=== PATIENT | female | born 1990 | race Caucasian/White ===

== ENCOUNTER → 2021-03-01 16:42 | Outpatient (CLI) | payer OTHER, SELFPAY ==
[2021-03-01 14:32] VITALS: BMI 29.9
[2021-03-06 15:24] LABS: HPV APTIMA, High Risk Negative (Negative)
== END ==
PROVIDERS: Referring Provider Obstetrics & Gynecology; Visit Provider Obstetrics & Gynecology
DX: Z12.4 Encounter for screening for malignant neoplasm of cervix (principal)
CPT/HCPCS: 87624; 88175; G0145

== ENCOUNTER → 2021-03-07 07:33 | Outpatient (CLI) | payer OTHER, SELFPAY ==
[2021-03-01 14:32] VITALS: BMI 29.9
--- NOTE | 2021-03-07 07:59 | US_ITS ---
STUDY: ULTRASOUND OF THE FEMALE PELVIS - COMPLETE REASON FOR EXAM: Female, 30 years old. PCOS LMP: 02/16/2021. TECHNIQUE: Transabdominal and Transvaginal TECHNICAL QUALITY: Adequate. COMPARISON: None. FINDINGS: The uterus is anteverted and is in a midline position. The uterus measures 6.9 cm x 4.3 cm x 3.5 cm. There is a Nabothian cyst of the cervix. The endometrium measures 5.1 mm in thickness, and is hyperechoic. There is no demonstrated endometrial mass. There is no demonstrated myometrial mass. I.U.D. - The patient does not have an I.U.D. The right ovary is visualized. The right ovary measures 2.7 cm x 4 cm x 2.1 cm. Multiple follicles are seen in the periphery of the ovaries. There is no visualized right adnexal mass or complex lesion. There is normal arterial and normal venous vascularity. The left ovary is visualized. The left ovary measures 3.7 cm x 2.6 x 2.2 cm. Multiple follicles are seen in the peripheral aspect of the ovaries. There is no visualized left adnexal mass or complex lesion. There is normal arterial and normal venous vascularity. There is a trace amount of fluid in the cul-de-sac. The pre void volume of the bladder was 430 ml. US/Transvaginal Non- IMPRESSION: Normal female pelvis. Multiple follicles are seen in the peripheral aspect of the ovaries. Electronically Signed: Jaylon Morrell MD at 14:59 EDT , Service support ,
--- NOTE | 2021-03-07 07:59 | US_ITS ---
STUDY: ULTRASOUND OF THE FEMALE PELVIS - COMPLETE REASON FOR EXAM: Female, 30 years old. PCOS LMP: 02/16/2021. TECHNIQUE: Transabdominal and Transvaginal TECHNICAL QUALITY: Adequate. COMPARISON: None. FINDINGS: The uterus is anteverted and is in a midline position. The uterus measures 6.9 cm x 4.3 cm x 3.5 cm. There is a Nabothian cyst of the cervix. The endometrium measures 5.1 mm in thickness, and is hyperechoic. There is no demonstrated endometrial mass. There is no demonstrated myometrial mass. I.U.D. - The patient does not have an I.U.D. The right ovary is visualized. The right ovary measures 2.7 cm x 4 cm x 2.1 cm. Multiple follicles are seen in the periphery of the ovaries. There is no visualized right adnexal mass or complex lesion. There is normal arterial and normal venous vascularity. The left ovary is visualized. The left ovary measures 3.7 cm x 2.6 x 2.2 cm. Multiple follicles are seen in the peripheral aspect of the ovaries. There is no visualized left adnexal mass or complex lesion. There is normal arterial and normal venous vascularity. There is a trace amount of fluid in the cul-de-sac. The pre void volume of the bladder was 430 ml. US/Pelvic (Non ) IMPRESSION: Normal female pelvis. Multiple follicles are seen in the peripheral aspect of the ovaries. Electronically Signed: Jaylon Morrell MD at 14:59 EDT , Service support ,
[2021-03-07 08:34] LABS: Hemoglobin A1c 5.5 % (3.8-5.6)
[2021-03-07 08:46] LABS: Cholesterol 196 mg/dL (200); Follicle Stimulating Hormone 6.1 mIU/mL; High Density Lipoprotein 68 mg/dL; Thyroid Stim Hormone (TSH) 4.65 uIU/mL (0.358-3.74); Triglycerides 100 mg/dL; Very Low Density Lipoprotein 20 mg/dL (5-40)
[2021-03-12 03:06] LABS: DHEA Sulfate 63.8 ug/dL (84.8-378.0)
== END ==
PROVIDERS: PCP Nurse Practitioner; Referring Provider Obstetrics & Gynecology; Visit Provider Obstetrics & Gynecology
DX: E28.2 Polycystic ovarian syndrome (principal)
CPT/HCPCS: 36415; 76830; 76856; 80061; 82627; 83001; 83036; 84402; 84443; 82626

== ENCOUNTER → 2021-05-01 06:46 | Outpatient (CLI) | payer OTHER, SELFPAY ==
[2021-03-01 14:32] VITALS: BMI 29.9
[2021-04-02 15:25] VITALS: BMI 32.5
[2021-05-01 08:20] LABS: T4 Free Direct 1.13 ng/dL (0.76-1.46); Thyroid Stim Hormone (TSH) 0.78 uIU/mL (0.358-3.74)
[2021-05-01 08:37] LABS: Progesterone Level 16.21 ng/mL (See Comment)
== END ==
LOC: PAVLAB 03-01 15:27 → LAB 06:50
PROVIDERS: Internal Medicine Endocrinology, Diabetes & Metabolism; PCP Nurse Practitioner; Referring Provider Obstetrics & Gynecology; Visit Provider Obstetrics & Gynecology
DX: E28.2 Polycystic ovarian syndrome (principal); E03.9 Hypothyroidism, unspecified
CPT/HCPCS: 36415; 84144; 84439; 84443

== ENCOUNTER → 2021-05-11 07:40 | Outpatient (CLI) | payer OTHER, SELFPAY ==
[2021-04-02 15:25] VITALS: BMI 32.5
[2021-05-11 08:31] LABS: hCG Titer Quant., Serum 118 mIU/mL (1-3)
== END ==
PROVIDERS: PCP Nurse Practitioner; Referring Provider Obstetrics & Gynecology; Visit Provider Obstetrics & Gynecology
DX: N91.2 Amenorrhea, unspecified (principal)
CPT/HCPCS: 36415; 84702

== ENCOUNTER → 2021-05-14 07:29 | Outpatient (CLI) | payer OTHER, SELFPAY ==
[2021-04-02 15:25] VITALS: BMI 32.5
[2021-05-14 08:01] LABS: hCG Titer Quant., Serum 370 mIU/mL (1-3)
== END ==
PROVIDERS: PCP Nurse Practitioner; Referring Provider Obstetrics & Gynecology; Visit Provider Obstetrics & Gynecology
DX: N91.2 Amenorrhea, unspecified (principal)
CPT/HCPCS: 36415; 84702

== ENCOUNTER → 2021-06-14 16:14 | Outpatient (CLI) | payer OTHER, SELFPAY ==
[2021-06-14 17:36] LABS: Amphetamine Urine VISTA NEGATIVE (<1000 ng/mL); Barbiturate Urine VISTA NEGATIVE (< 200 ng/mL); Benzodiazepine Urine VISTA NEGATIVE (< 200 ng/mL); Cocaine Urine VISTA NEGATIVE (< 300 ng/mL); Ecstacy Urine VISTA NEGATIVE (< 500 ng/mL); Methadone Urine VISTA NEGATIVE (< 300 ng/mL); PCP Urine VISTA NEGATIVE (< 25 ng/mL); THC Urine VISTA NEGATIVE (< 50 ng/mL); Vista UDS pH Range 7
[2021-06-18 05:07] LABS: Chlamydia By Nucleic Acid AMP Negative (Negative)
[2021-06-19 17:06] LABS: Gonococcus By Nucleic Acid AMP Negative (Negative)
== END ==
PROVIDERS: PCP Nurse Practitioner; Visit Provider Obstetrics & Gynecology
DX: Z34.90 Encounter for supervision of normal pregnancy, unspecified, unspecified trimester (principal)
CPT/HCPCS: 80307; 87086; 87088; 87491; 87591

== ENCOUNTER → 2021-07-11 09:02 | Outpatient (CLI) | payer OTHER, SELFPAY ==
[2021-04-02 15:25] VITALS: BMI 32.5
[2021-07-11 09:36] LABS: Absolute Lymphocyte Count 1.79 X10^3/uL (0.83-4.51); Absolute Neutrophil Count 5.8 X10^3/uL (2.0-7.7); Basophil# 0.02 X10^3/uL; Basophil% 0.2 % (0-1); Eosinophil# 0.16 X10^3/uL; Eosinophils% 1.9 % (0-5); Hematocrit 34.9 % (37-47); Hemoglobin 11.8 g/dL (12.0-15.0); Lymphocyte # 1.79 X10^3/ul (0.83-4.51); Lymphocyte % 21.8 % (19-41); Mean Corp Hgb Conc 33.8 g/dL (32-36); Mean Corpuscular Hgb 30.7 pg (27.0-32.0); Mean Corpuscular Volume 90.9 fL (81-99); Mean Platelet Vol. 9.3 fl (6.2-12.0); Monocyte# 0.47 X10^3/uL; Monocyte% 5.7 % (0-10); NRBC Flagged by Analyzer 0 % (0-5); Neutrophil # 5.76 X10^3/uL (2.7-7.7); Neutrophil % 70.2 % (47-70); Platelet Count 331 K/mm3 (150-450); RBC Distribution Width CV 15.5 % (11.6-14.6); RBC Distribution Width SD 51.3 fl (35.1-43.9); Red Blood Count 3.84 M/mm3 (4.2-5.4); White Blood Count 8.2 K/mm3 (4.4-11.0)
[2021-07-11 10:01] LABS: Hemoglobin A1c 5.5 % (3.8-5.6)
[2021-07-11 10:28] LABS: T4 Free Direct 1.26 ng/dL (0.76-1.46); Thyroid Stim Hormone (TSH) 0.96 uIU/mL (0.358-3.74)
[2021-07-11 10:57] LABS: HIV - WCH Non-Reactive (Nonreactive); Hepatitis B Surface Antigen Non-Reactive (Nonreactive); Hepatitis C Antibody Non-Reactive (Nonreactive); Rubella IgG Reactive (Nonreactive); Syphilis Antibodies Non-reactive
== END ==
PROVIDERS: Nurse Practitioner Family; Obstetrics & Gynecology; PCP Nurse Practitioner; Referring Provider Internal Medicine Endocrinology, Diabetes & Metabolism; Visit Provider Internal Medicine Endocrinology, Diabetes & Metabolism
DX: Z34.90 Encounter for supervision of normal pregnancy, unspecified, unspecified trimester (principal); E03.9 Hypothyroidism, unspecified; E88.81 Metabolic syndrome and other insulin resistance
CPT/HCPCS: 36415; 83036; 84439; 84443; 85025; 86703; 86762; 86780; 86803; 86850; 86900; 86901; 87340

== ENCOUNTER → 2021-08-07 09:47 | Outpatient (CLI) | payer OTHER, SELFPAY ==
[2021-08-07 10:12] LABS: Absolute Lymphocyte Count 1.26 X10^3/uL (0.83-4.51); Absolute Neutrophil Count 4.5 X10^3/uL (2.0-7.7); Basophil# 0.01 X10^3/uL; Basophil% 0.2 % (0-1); Eosinophil# 0.03 X10^3/uL; Eosinophils% 0.5 % (0-5); Hematocrit 35.6 % (37-47); Hemoglobin 11.7 g/dL (12.0-15.0); Lymphocyte # 1.26 X10^3/ul (0.83-4.51); Lymphocyte % 20.6 % (19-41); Mean Corp Hgb Conc 32.9 g/dL (32-36); Mean Corpuscular Hgb 29.8 pg (27.0-32.0); Mean Corpuscular Volume 90.6 fL (81-99); Mean Platelet Vol. 9.3 fl (6.2-12.0); Monocyte# 0.31 X10^3/uL; Monocyte% 5.1 % (0-10); NRBC Flagged by Analyzer 0 % (0-5); Neutrophil # 4.46 X10^3/uL (2.7-7.7); Neutrophil % 72.8 % (47-70); Platelet Count 217 K/mm3 (150-450); RBC Distribution Width CV 15.2 % (11.6-14.6); RBC Distribution Width SD 51.1 fl (35.1-43.9); Red Blood Count 3.93 M/mm3 (4.2-5.4); White Blood Count 6.1 K/mm3 (4.4-11.0)
[2021-08-07 10:24] LABS: Glucose Challenge Gest 1H 50g 122 mg/dL (70-140)
== END ==
PROVIDERS: PCP Nurse Practitioner; Referring Provider Obstetrics & Gynecology; Visit Provider Obstetrics & Gynecology
DX: Z13.1 Encounter for screening for diabetes mellitus (principal)
CPT/HCPCS: 36415; 82950; 85025

== ENCOUNTER → 2021-09-05 08:32 | Outpatient (CLI) | payer OTHER, SELFPAY ==
[2021-09-05 09:20] LABS: T4 Free Direct 1.02 ng/dL (0.76-1.46); Thyroid Stim Hormone (TSH) 1.08 uIU/mL (0.358-3.74)
== END ==
PROVIDERS: PCP Nurse Practitioner; Referring Provider Internal Medicine Endocrinology, Diabetes & Metabolism; Visit Provider Internal Medicine Endocrinology, Diabetes & Metabolism
DX: E03.9 Hypothyroidism, unspecified (principal)
CPT/HCPCS: 36415; 84439; 84443

== ENCOUNTER → 2021-10-25 08:59 | Outpatient (CLI) | payer OTHER, SELFPAY ==
[2021-10-25 09:42] LABS: Absolute Lymphocyte Count 1.89 X10^3/uL (0.83-4.51); Absolute Neutrophil Count 7.5 X10^3/uL (2.0-7.7); Basophil# 0.03 X10^3/uL; Basophil% 0.3 % (0-1); Eosinophil# 0.54 X10^3/uL; Eosinophils% 5.2 % (0-5); Hematocrit 34.6 % (37-47); Hemoglobin 11.5 g/dL (12.0-15.0); Lymphocyte # 1.89 X10^3/ul (0.83-4.51); Lymphocyte % 18.1 % (19-41); Mean Corp Hgb Conc 33.2 g/dL (32-36); Mean Corpuscular Hgb 30.8 pg (27.0-32.0); Mean Corpuscular Volume 92.8 fL (81-99); Mean Platelet Vol. 9.4 fl (6.2-12.0); Monocyte# 0.42 X10^3/uL; NRBC Flagged by Analyzer 0 % (0-5); Neutrophil # 7.45 X10^3/uL (2.7-7.7); Neutrophil % 71.1 % (47-70); Platelet Count 293 K/mm3 (150-450); RBC Distribution Width CV 15.3 % (11.6-14.6); Red Blood Count 3.73 M/mm3 (4.2-5.4); White Blood Count 10.5 K/mm3 (4.4-11.0)
[2021-10-25 10:07] LABS: Glucose Challenge Gest 1H 50g 165 mg/dL (70-140); T4 Free Direct 0.87 ng/dL (0.76-1.46); Thyroid Stim Hormone (TSH) 1.07 uIU/mL (0.358-3.74)
== END ==
PROVIDERS: PCP Nurse Practitioner; Referring Provider Obstetrics & Gynecology; Visit Provider Obstetrics & Gynecology
DX: O09.90 Supervision of high risk pregnancy, unspecified, unspecified trimester (principal); O98.512 Other viral diseases complicating pregnancy, second trimester; U07.1 COVID-19; O26.892 Other specified pregnancy related conditions, second trimester; N97.0 Female infertility associated with anovulation; E03.9 Hypothyroidism, unspecified; E88.81 Metabolic syndrome and other insulin resistance; Z3A.25 25 weeks gestation of pregnancy
CPT/HCPCS: 36415; 82950; 84439; 84443; 85025

== ENCOUNTER 2021-11-01 06:51 | Outpatient (CLI) | payer OTHER, SELFPAY ==
[2021-11-01 08:06] LABS: Glucose GTT-Gestation. Fasting 90 mg/dL (<105)
[2021-11-01 08:37] LABS: Glucose GTT-Gestational 1 Hr 167 mg/dL (<190)
[2021-11-01 09:33] LABS: Glucose GTT-Gestational 2 Hr 130 mg/dL (<165)
[2021-11-01 10:31] LABS: Glucose GTT-Gestational 3 Hr 107 L (<145)
== END 2021-11-01 23:59 | disposition short-term general hospital (02) ==
PROVIDERS: PCP Nurse Practitioner; Referring Provider Obstetrics & Gynecology; Visit Provider Obstetrics & Gynecology
DX: Z13.1 Encounter for screening for diabetes mellitus (principal)
CPT/HCPCS: 36415; 82951; 82952

== ENCOUNTER 2021-11-22 09:59 | Outpatient (CLI) | payer OTHER, SELFPAY ==
--- NOTE | 2021-11-22 10:03 | US_ITS ---
STUDY: SECOND AND THIRD TRIMESTER OBSTETRICAL ULTRASOUND - LIMITED REASON FOR EXAM: Female, 31 years old routine survey LMP: 04/11/2021 PRIOR ULTRASOUND: None. TECHNIQUE: Transabdominal TECHNICAL QUALITY: Adequate. FINDINGS: There is a single intrauterine fetus. The fetus is in a cephalic presentation. There is demonstrated cardiac activity with a heart rate of 130 bpm. There is a normal amniotic fluid volume. The largest amniotic fluid pocket measures 6.47 cm. The amniotic fluid index (DEBRA) is 16.93 cm. The placenta is anterior in location and is not low lying. There are Grade 1 placental changes. The cervix measures 3.82 cm in length. BIOMETRY: BPD: 8.67 cm: 34 weeks, 6 days HC: 31.31 cm: 35 weeks, 0 days AC: 29.60 cm: 33 weeks, 4 days FL: 6.05 cm: 31 weeks, 3 days Age by LMP: 32 weeks, 1 days. CATHY by LMP: 01/16/2022. age by current US: 33 weeks, 6 days. CATHY by current US: 01/04/2022. Estimated weight: 2161 grams, +/- 324 grams, 27.5 percentile. US/OB Limited With Biometrics IMPRESSION: Single live intrauterine at 33 weeks, 6 days by current ultrasound with CATHY of 01/04/2022. Heart rate at 130 bpm. No suspicious sonographic findings Electronically Signed: Sunil Nair MD at 13:48 EST ,
== END 2021-11-22 23:59 | disposition short-term general hospital (02) ==
LOC: US 10:02
PROVIDERS: PCP Nurse Practitioner; Visit Provider Obstetrics & Gynecology
DX: U07.1 COVID-19 (principal)
CPT/HCPCS: 76816

== ENCOUNTER 2021-12-19 08:24 | Outpatient (CLI) | payer OTHER, SELFPAY ==
--- NOTE | 2021-12-19 08:26 | US_ITS ---
STUDY: SECOND AND THIRD TRIMESTER OBSTETRICAL ULTRASOUND - LIMITED REASON FOR EXAM: Female, 31 years old growth -- 36 weeks LMP: 04/11/2021. PRIOR ULTRASOUND: Comparison is made with prior study dated 11/22/2021. TECHNIQUE: Transabdominal TECHNICAL QUALITY: Adequate. FINDINGS: There is a single intrauterine fetus. The fetus is in a cephalic presentation. There is demonstrated cardiac activity with a heart rate of 130 bpm. There is a normal amniotic fluid volume. The largest amniotic fluid pocket measures 7.9 cm. The amniotic fluid index (DEBRA) is 22.3 cm. The placenta is anterior in location and is not low lying. There are Grade 2 placental changes. BIOMETRY: BPD: 9.6 cm: 39 weeks, 0 days HC: 34.4 cm: 39 weeks, 5 days AC: 34 cm: 37 weeks, 6 days FL: 7.2 cm: 37 weeks, 0 days Age by LMP: 36 weeks, 0 days. CATHY by LMP: 01/16/2022. age by prior US: 37 weeks, 6 days. CATHY by prior US: 01/04/2022. age by current US: 38 weeks, 2 days. CATHY by current US: 12/31/2021. Estimated weight: 3376 grams, +/- 506 grams, 93 percentile. US/OB Limited With Biometrics IMPRESSION: Single live uterine gestation with a mean gestational age of 37 weeks and 6 days. The measurements obtained today fall within normal expected range. Electronically Signed: Jaylon Morrell MD at 10:53 EST ,
== END 2021-12-19 23:59 | disposition home or self-care (01) ==
PROVIDERS: PCP Nurse Practitioner; Referring Provider Obstetrics & Gynecology; Visit Provider Obstetrics & Gynecology
DX: O09.90 Supervision of high risk pregnancy, unspecified, unspecified trimester (principal); Z3A.00 Weeks of gestation of pregnancy not specified
CPT/HCPCS: 76816; 87077; 87081; 87186

== ENCOUNTER 2022-01-23 06:50 | Inpatient (IN) | payer OTHER, SELFPAY ==
[2022-01-23] VITALS (41 sets, daily range): BP systolic 108–133; BP diastolic 57–79; PULSE 66–100; TEMP 36.4–37; O2SAT 94–98; BMI 40.1
--- NOTE | 2022-01-23 07:25 | HP.PCM.OB_ITS ---
HPI - General General Date of Admission: 01/23/22 HPI Narrative KOSTA YEN, is a 31 y/o @ 41 weeks F who presents for post dates induction of labor Maternal Data Information CATHY Calculator Estimated Delivery Date Method Current WG Current Estimate 01/16/22 LMP (Certain) 41w 0d PFSH PFSH Medical History Abnormal glucose affecting Hypothyroidism IBS (irritable bowel syndrome) Influenza vaccination declined Insulin resistance Lab test positive for detection of COVID-19 virus precacerous mole removed from back Home Medications aspirin 81 mg tablet,delayed release 81 mg PO DAILY 09/05/21 [History Last Taken 01/22/22 21:00] levothyroxine 75 mcg PO DAILY 01/23/22 [History Last Taken 01/23/22 06:00] [id number] [Ultra Plus DHA] 1 cap PO DAILY 01/23/22 [History Last Taken 01/22/22 21:00] Allergy/AdvReac Type Severity Reaction Status Date / Time No Known Allergies Allergy Verified 01/09/22 08:05 Family History Other Colon cancer Diabetes Heart disease Surgical History no surgical history Social History adopted: No household members: spouse current occupational status: employed current occupation: [employer] pets and animals: No Smoking Status: Never smoker alcohol intake: never substance use type: does not use seatbelt use: always do you feel safe at home: Yes additional social history: [employer] Patient works at [employer] History 1 Elective abortions Hx Para 0 Spontaneous abortions Hx # Term Pregnancies Ectopic pregnancies Hx # Pregnancies Multiple births # of living children Visit Details Expected Delivery Route/Plan Labor Preferences- CB/BF classes: done labor support person: David labor intervention preferences: no specific pain management options preferred: epidural cut cord/dad catch: [] : [] PP control planned: [] discussed possible routes of delivery and associated risks: [] special requests: [] Plans Covid status: pos in , counseled regarding risk of covid in vs vaccination and declined vaccination Flu vaccine: declined Tdap vaccine: given Rhogam: na LARC form signed: declined movement and labor precautions reviewed. Problem list reviewed and updated with the most current plan of care details and appropriate orders placed. Relevant counseling for the gestational age provided. Continue routine care and follow up unless otherwise noted in visit notes/problem list details OB Flowsheet Initial Weight: 198 lb Date -?-?-?-?-?-?-?-?-?-?-?-?- EGA Weight BP Urine Prot -?-?-?-?-?-?-?-?-?-?-?-?- Glucose FHR FuHt Pres Dilation -?-?-?-?-?-?-?-?-?-?-?-?- Effaced St Visit Note 06/14/21 -?-?-?-?-?-?-?-?-?-?-?-?- 9w 1d 198 lb (+0 oz) -?-?-?-?-?-?-?-?-?-?-?-?- 185 -?-?-?-?-?-?-?-?-?-?-?-?- SM- no vb crampi ng SM- no vb cramping CRL 2 cm cons with LMP 07/11/21 -?-?-?-?-?-?-?-?-?-?-?-?- 13w 0d 206 lb (+8 lb) 132/88 Negative -?-?-?-?-?-?-?-?-?-?-?-?- Negative 160 -?-?-?-?-?-?-?-?-?-?-?-?- GP - no cramping or bleeding. Anatomy scna ordered 08/07/21 -?-?-?-?-?-?-?-?-?-?-?-?- 16w 6d 206 lb (+8 lb) 110/82 Negative -?-?-?-?-?-?-?-?-?-?-?-?- Negative 145 -?-?-?-?-?-?-?-?-?-?-?-?- SM- no vb crampi ng 09/05/21 -?-?-?-?-?-?-?-?-?-?-?-?- 21w 0d 212 lb 8 oz (+14 lb 8 oz) 112/74 Negative -?-?-?-?-?-?-?-?-?-?-?-?- Negative 145 21 -?-?-?-?-?--?-?-?-?-?-?-?- Sm- Sm- no vb lof good fm no reg ular ctx had covid and recovered 10/04/21 -?-?-?-?-?-?-?-?-?-?-?-?- 25w 1d 223 lb (+25 lb) 124/86 Negative -?-?-?-?-?-?-?-?-?-?-?-?- Negative 145 25 -?-?-?-?-?-?-?-?-?-?-?-?- SM- no vb lof go od fm nor egular ctx 10/25/21 -?-?-?-?-?-?-?-?-?-?-?-?- 28w 1d 226 lb 2 oz (+28 lb 2 oz) 110/68 Negative -?-?-?-?-?-?-?-?-?-?-?-?- Negative 140 28 -?-?-?-?-?-?--?-?-?-?-?-?- SM- no vb lof go od fm no regul ar ctx bloodwork today tdap 11/08/21 -?-?-?-?-?-?-?-?-?-?-?-?- 30w 1d 229 lb 2 oz (+31 lb 2 oz) 110/70 Negative -?-?-?-?-?-?-?-?-?-?-?-?- Negative 140 30 -?-?-?-?-?-?-?-?-?-?-?-?- SM- no vb lof go od fm no reuglar ctx 11/21/21 -?-?-?-?-?-?-?-?-?-?-?-?- 32w 0d 231 lb 6 oz (+33 lb 6 oz) 110/70 Negative -?-?-?-?-?-?-?-?-?-?-?-?- Negative 160 31 -?-?-?-?-?-?--?-?-?-?-?-?- JV- no lof, vagi nal bleeding, or dec fm. 12/07/21 -?-?-?-?-?-?-?-?-?-?-?-?- 34w 2d 234 lb (+36 lb) 114/80 Negative -?-?-?-?-?-?-?-?-?-?-?-?- Negative 150 34 Cephalic -?-?-?-?-?-?-?-?-?-?-?-?- SM- no vb lof go od fm no regular ctx 12/19/21 -?-?-?-?-?-?-?-?-?-?-?-?- 36w 0d 237 lb 4 oz (+39 lb 4 oz) 120/88 Negative -?-?-?-?-?-?-?-?-?-?-?-?- Negative 145 35 Cephalic 0 -?-?-?-?-?-?-?-?-?-?-?-?- -4 JV- no l of, vaginal bleeding, or dec fm. has ultrasound today for growth due to covid in . 12/27/21 -?-?-?-?-?-?-?-?-?-?-?-?- 37w 1d 122/82 Negative -?-?-?-?-?-?-?-?-?-?-?-?- Negative 140 37 Cephalic 0 .5 -?-?-?-?-?-?-?-?-?-?-?-?- 20 0 SM- no vb lof good fm no regular ctx SM- no vb lof good fm no reg ular ctx cervix soft very posterior but thinning head very low, discussed large EFW, recommend exp management 01/04/22 -?-?-?-?-?-?-?-?-?-?-?-?- 38w 2d 240 lb (+42 lb) 102/72 Negative -?-?-?-?-?-?-?-?-?-?-?-?- Negative 140 38 Cephalic 0 .5 -?-?-?-?-?-?-?-?-?-?-?-?- SMno vb lof good fm nor egular ctx 01/09/22 -?-?-?-?-?-?-?-?-?-?-?-?- 39w 0d 244 lb 8 oz (+46 lb 8 oz) 108/80 Negative -?-?-?-?-?-?-?-?-?-?-?-?- Negative 135 39 Cephalic 0 -?-?-?-?-?-?-?-?-?-?-?-?- -2 JV- pt g etting tired, still not dilated and cx very posterior. we will retry next week for sweeping membranes and plan for 41 week IOL unless moody score is improved. 01/15/22 -?-?-?-?-?-?-?-?-?-?-?-?- 39w 6d 246 lb (+48 lb) 102/86 Negative -?-?-?-?-?-?-?-?-?-?-?-?- Negative 140 40 Cephalic 0 .5 -?-?-?-?-?-?-?-?-?-?-?-?- SM- no vb lof go od fm no regular ctx discussed IOL 41 with cytotec 01/23/22 -?-?-?-?-?--?-?-?-?-?-?-?- 41w 0d 248 lb 7.375 oz (+50 lb 7.375 oz) 130/73 118/67 126/75 -?-?-?-?-?-?-?-?-?-?-?-?- -?-?-?-?-?-?-?-?-?-?-?-?- ROS Constitutional Constitutional: Denies change in weight, fatigue, fever(s), headache(s), poor appetite or weakness Eyes Eyes: Denies blurry vision, change in vision, seeing flashes or spots in vision ENT HEENT: Denies dizziness, headache(s), loss taste/smell or sore throat Cardiovascular Cardiovascular: Denies chest pain, dizziness, dyspnea, irregular heart rhythm, leg edema, palpitations, rapid heart rate or vomiting Respiratory/Chest Respiratory/Chest: Denies chest tightness, cough, dyspnea or breast pain Gastrointestinal Gastrointestinal: Denies abdominal pain, anorexia, constipation, cramping, diarrhea, hemorrhoids, vomiting or weight changes Genitourinary Genitourinary: Denies dysuria, flank pain, genital lesions, genital pain, urinary frequency or urinary urgency Musculoskeletal Musculoskeletal: Denies back pain, difficulty walking, joint pain, limited range of motion, muscle cramps or numbness Integumentary Integumentary: Denies lesions or unusual bruising Neurologic Neurologic: Denies abnormal movements, abnormal speech, dizziness, numbness, seizure-like activity or syncope Psychiatric Psychiatric: Denies anxiety, behavioral changes, change in appetite, change in libido, cognitive impairment, confusion, depression, difficulty concentrating, hallucinations or suicidal thoughts Endocrine Endocrinology: Denies excessive sweating, polydipsia or polyuria Hematologic/Lymphatic Hematologic/Lymphatic: Denies easy bleeding, easy bruising or lymphadenopathy Allergic/Immunologic Allergic/Immunologic: Denies itchy eyes, lip swelling, seasonal rhinorrhea, rhinitis, throat swelling, tongue swelling, eczemia, wheezing or asthma Vital Signs Vital Signs Vital Signs: 01/23/22 07:37 01/23/22 11:58 01/23/22 15:54 Temperature 97.9 F 98.1 F Temperature Source Temporal Pulse Rate 100 81 Blood Pressure 130/73 H 118/67 BP Systolic 130 118 BP Diastolic 73 67 Pulse Ox 97 01/23/22 15:55 Temperature 98.6 F Temperature Source Pulse Rate 66 Blood Pressure 126/75 H BP Systolic 126 BP Diastolic 75 Pulse Ox Weight Weight: 248 lb 7.375 oz Body Mass Index (BMI) 40.1 Physical Exam Const alert, oriented x3, no apparent distress and healthy appearing General Appearance: cooperative; Negative for anxious HEENT normocephalic Face and Sinus: normal facial exam Eyes EOMs intact bilaterally and no scleral icterus General Eye: normal appearance of both eyes Neck full ROM and supple Lymph Lymphatic: no lymphadenopathy noted Chest Chest: abnormal inspection of the chest Resp normal respiratory effort Effort and Inspection: able to speak in complete sentences Cardio regular rate GI soft to palpation and non-tender Inspection: gravid Palpation: soft; Negative for tender external exam normal Amniotic Fluid: other cx is closed Back/Spine no CVA tenderness Extremity normal to inspection, full ROM and no clubbing, cyanosis or edema General Extremity: Negative for calf tenderness or edema Skin Lesions: no lesions Rashes: no rashes Psych mental status grossly normal Labs Labs Labs: Blood Type A POSITIVE Antibody Screen NEGATIVE Hct 34.4 % (37-47) L Hgb 12.6 g/dL (12.0-15.0) Pap Smear Negative Obstetrics US Syphilis Total Ab Non-reactive Rubella IgG Antibody Reactive (Nonreactive) Hep Bs Antigen Non-Reactive (Nonreactive) Chlamydia DNA ([place]) Negative (Negative) Neisseria gonorrhoeae DNA ([place]) Negative (Negative) HIV 1&2 Antibody Non-Reactive (Nonreactive) Glucose 1 Hr 50 gm 165 mg/dL (70-140) H Assessment & Plan (1) Positive GBS test: COMMENT: Will need PCN at delivery (2) Abnormal glucose affecting : COMMENT: nl 3 hr. (3) Lab test positive for detection of COVID-19 virus: COMMENT: 81 asa and growth US @ 32, 36 wk (4) Supervision of high risk , antepartum: COMMENT: PRR CATHY 01/16/22 boy juice Spouse: David (5) : QUALIFIERS: Weeks of gestation: 39 weeks Qualified Code(s): Z3A.39 - 39 weeks gestation of COMMENT: declined genetic, carrier, ntd screening. NL glucose. 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 check each trimester. (8) Insulin resistance: COMMENT: metformin stopped. endocrine PLAN: Patient presents IOL, plan management for with cytotec then lopez/ pit. Pain management: plans epidural. GBS positive- will start pcn when lopez is placed or sooner as needed. Management of any complications: insulin resistance and covid in I have reviewed the [facility] and made any clinically relevant updates.
[2022-01-23 08:12] LABS: Absolute Lymphocyte Count 1.58 X10^3/uL (0.83-4.51); Absolute Neutrophil Count 6.5 X10^3/uL (2.0-7.7); Basophil# 0.02 X10^3/uL; Basophil% 0.2 % (0-1); Eosinophil# 0.24 X10^3/uL; Eosinophils% 2.6 % (0-5); Hematocrit 34.4 % (37-47); Hemoglobin 12.6 g/dL (12.0-15.0); Lymphocyte # 1.58 X10^3/ul (0.83-4.51); Lymphocyte % 17.4 % (19-41); Mean Corp Hgb Conc 36.6 g/dL (32-36); Mean Corpuscular Hgb 33.2 pg (27.0-32.0); Mean Corpuscular Volume 90.8 fL (81-99); Mean Platelet Vol. 10.6 fl (6.2-12.0); Monocyte# 0.67 X10^3/uL; Monocyte% 7.4 % (0-10); NRBC Flagged by Analyzer 0 % (0-5); Neutrophil # 6.53 X10^3/uL (2.7-7.7); Neutrophil % 71.7 % (47-70); Platelet Count 242 K/mm3 (150-450); RBC Distribution Width CV 15.2 % (11.6-14.6); RBC Distribution Width SD 50.3 fl (35.1-43.9); Red Blood Count 3.79 M/mm3 (4.2-5.4); White Blood Count 9.1 K/mm3 (4.4-11.0)
[2022-01-23] MEDS: Lactated Ringers 1,000 ML 50 ML IV (08:12)
[2022-01-23] MEDS: miSOPROStol 25 MCG TABLET PO ×2 (08:25→12:56)
[2022-01-23] MEDS: Lactated Ringers 1,000 ML 999 ML IV (12:57)
[2022-01-23] MEDS: fentaNYL 100 MCG/2 ML Ampul IV (16:37)
[2022-01-23] MEDS: Lactated Ringers 500 ML 999 ML IV (17:24)
--- NOTE | 2022-01-23 17:27 | PCM.PN.BLA ---
Progress Note pt is now 1 cm dilated per nurse exam. She consents to placement of lopez catheter. Per nurses, she was complaining of 10/10 with the contractions and she is requesting an epidural current tracing: FHT: Moderate variability reactive no decelerations category I tracing [place]: q 1-3 min Contractions attempt x [address] lopez bulb. The bulb was placed in the cervix however when the stilette was removed the lopez pulled out with it reviewed tracing abnormalities since last note A/P: start pcn request epidural and re-attempt with the lopez bulb
[2022-01-23] MEDS: fentaNYL-bupivacaine (epidural) 100 ML BAG EPIDURAL ×2 (18:46→22:57)
[2022-01-23] MEDS: 0.9% Normal Saline Single 100 ML IV.SOLN. INTRA-UTER (20:28)
[2022-01-23] MEDS: Lactated Ringers 1,000 ML 200 ML IV (20:37)
--- NOTE | 2022-01-23 20:57 | PCM.PN.BLA ---
Progress Note pt is now comfortable with epidural. She is ready to try for insertion of lopez bulb again. current tracing: FHT: Moderate variability reactive no decelerations category I tracing [place]: q3-5 min Contractions cx 2.5/80/-2, lopez bulb placed without difficulty this time as patient was more relaxed. The bulb was filled with 80cc NS reviewed tracing abnormalities since last note: no changes A/P: Post dates induction continue tugging on lopez every hour. Start pitocin when it falls out or if contractions are longer than 5 min apart. AROM as needed
[2022-01-23] MEDS: Penicillin G 3,000,000 Units 50 ML 100 UNITS IV (22:37)
[2022-01-24] VITALS (39 sets, daily range): BP systolic 99–139; BP diastolic 55–81; PULSE 67–93; TEMP 36.4–36.9; O2SAT 93–99
[2022-01-24] MEDS: Lactated Ringers 1,000 ML 200 ML IV ×5 (02:04→23:19)
[2022-01-24] MEDS: Penicillin G 3,000,000 Units 50 ML 100 UNITS IV ×6 (02:13→22:04)
[2022-01-24] MEDS: fentaNYL-bupivacaine (epidural) 100 ML BAG EPIDURAL ×5 (03:25→23:20)
[2022-01-24] MEDS: Oxytocin 30 units/NS 500 ml 30 UNITS/500 ML IV.SOLN IV (04:15)
--- NOTE | 2022-01-24 08:46 | PN_ITS ---
Progress Note pt is resting in bed and comforatable. The lopez bulb came out and she is now on 4 mu/min of pitocin current tracing: FHT: Moderate variability reactive no decelerations category I tracing [place]: q1-2 min Contractions membranes ruptured artificially and marked amount of fluid returned (clear) cx: /-1 reviewed tracing abnormalities since last note: no changes A/P: continue pitocin and continuous monitoring
[2022-01-24] MEDS: Ondansetron 4 MG/2 ML Vial IV (19:45)
[2022-01-24] MEDS: 0.9% Saline Lock 10 ML Syringe IV (19:45)
[2022-01-25] VITALS (31 sets, daily range): BP systolic 100–139; BP diastolic 53–72; PULSE 74–118; RESP 14–18; TEMP 35.7–37.1; O2SAT 82–98
[2022-01-25] MEDS: Penicillin G 3,000,000 Units 50 ML 100 UNITS IV (01:58)
[2022-01-25] MEDS: Oxytocin 30 units/NS 500 ml 30 UNITS/500 ML IV.SOLN 334 UNITS IV (03:21)
[2022-01-25] MEDS: Methylergonovine 0.2 MG/ML Ampul IM (03:25)
--- NOTE | 2022-01-25 04:13 | EX.PCM.OBRPT ---
Maternal Data Information CATHY Calculator Estimated Delivery Date Method Current Current Estimate 01/16/22 LMP (Certain) 41w 2d Vaginal Delivery Maternal Presentation Maternal Presentation: Medically Indicated Induction Type of Induction: Pitocin, Haile Bulb, Amniotomy and Cytotec Operative Information Date of Procedure: 01/25/22 Pre-Operative Diagnosis: @ 41 weeks gestation, induction for post dated Post-Operative Diagnosis: @ 41 weeks gestation, induction for post dated Surgery / Procedure Performed: Vacuum Assisted Vaginal Delivery Type of Anesthesia: Epidural Estimated Blood Loss: 400cc Findings Description of Procedure: Patient pushed for 4 hours and brought the head to a +2 station. She gave consent to perform a vacuum extraction. The kiwi was placed on the infants head, anterior to the posterior fontanelle. The kiwi was suctioned to the green zone and pulled x 1 without pop offs. The head delivered the head in the VINNY presentation. The head was delivered atraumatically and a loose nuchal cord ?1 was identified and easily reduced over the 's head. The anterior and posterior shoulders delivered without complication followed by the rest of the infant and the was placed on the maternal abdomen. Delayed cord clamping was employed for approximately 30 seconds. Cord was clamped and cut and gentle traction was applied to the cord and the placenta delivered spontaneously immediately following it was noted to be intact with three-vessel cord. The perineum and vagina were inspected and noted to have a 2nd degree perineal laceration which was repaired using a 2-0 Vicryl suture.. EBL was 400cc. A small piece of membrane was noted at the fundus and removed. With Methergine and further massage along with pitocin, the bleeding stopped. Patient and tolerated delivery well. Presentation: Vertex Amniotic Membrane Rupture Type: Artificial Amniotic Fluid Description: Clear Placental Delivery Description: Spontaneous Placenta Disposition: [facility] Cord Vessel Description: 3 Vessels Cord Entanglement: Around neck x 1, loose Nuchal Cord Compression: Without compression Infant A Gender: Male (1 minute): 8 (5 minute): 9 Delayed Cord Clamping: Yes Post Vaginal Delivery Medications Given After Delivery: IV Pitocin and IM Methergin Episiotomy Description: None Laceration: 2nd degree Complication Complications: None Multi Select Codes Urinary/Genital Urinary/Genital CPT Codes: 76740 Vaginal Delivery global pkg (vacuum extraction delivery )
--- NOTE | 2022-01-25 04:18 | PCM.DC ---
Discharge Instructions Diet Discharge Diet: No restrictions Activity Discharge Activity: Return to Normal Activity, May Not Drive (while taking narcotic pain medications.) and May Shower May resume sexual activity in: 4-6 weeks Dressing / Incision Call your doctor if your incision/area has: Continuous Slow Oozing, Sudden Increased Bleeding, Increased Pain/ Swelling, Increased Redness and Foul Smelling Discharge Follow Up Care Please Follow Up With: Joanne Ahn, When: Call [phone] to make an appointment with your doctor in 6 weeks. If you had elevated blood pressure or 4th degree laceration, you will need to be seen in 2 weeks. Test Results: Test results from this visit will be discussed in further detail at your follow-up appointment, if applicable. Discharge Plan Admission Admit Date/Time: 01/23/22 06:50 Primary Reason for Your Visit: vaginal delivery, vacuum assisted Attending Provider: Joanne Ahn Primary Care Provider: Melvina Bhatti NP Discharge Orders/Prescriptions Prescriptions: New ibuprofen 800 mg tablet 800 mg PO Q8H PRN (Reason: pain) 7 Days Qty: 30 RF: 0 Continued levothyroxine 75 mcg capsule 75 mcg PO DAILY RF: 0 Ultra Plus DHA 27 mg-800 mcg- 250 mg-200 mg capsule 1 cap PO DAILY RF: 0 Discontinued aspirin [Aspirin Low Dose] 81 mg tablet,delayed release (DR/EC) 81 mg PO DAILY RF: 0 Referrals / Follow Up: Melvina Bhatti NP, [employer] [Primary Care Provider] - Disposition Disposition (needs filled in before D/C Order can be placed): Home, Self Care
[2022-01-25] MEDS: Ibuprofen 600 MG Tablet PO ×2 (06:11→19:47)
[2022-01-25] MEDS: Levothyroxine 75 MCG Tablet PO (07:22)
--- NOTE | 2022-01-25 11:24 | NURSING ---
1030-void 500cc
[2022-01-25] MEDS: Senna/Docusate Sodium 1 Tablet PO (12:28)
[2022-01-25] MEDS: Acetaminophen 500 MG Tablet 1000 MG PO ×2 (12:29→20:59)
--- NOTE | 2022-01-25 13:47 | NURSING ---
1430- void 400cc
[2022-01-26] VITALS (7 sets, daily range): BP systolic 105–137; BP diastolic 55–67; PULSE 68–105; RESP 14–18; TEMP 36.1–36.3; O2SAT 95–99
[2022-01-26] MEDS: Ibuprofen 600 MG Tablet PO ×2 (02:08→09:38)
[2022-01-26] MEDS: Acetaminophen 500 MG Tablet 1000 MG PO ×2 (04:07→10:44)
[2022-01-26] MEDS: Levothyroxine 75 MCG Tablet PO (06:41)
--- NOTE | 2022-01-26 10:14 | PCM.PN.OB ---
Subjective Subjective Patient doing well without complaints. Tolerating PO. Ambulating and voiding without difficulty. feeding well. Denies chest pain, shortness of breath, calf pain/swelling, fevers, chills, lightheadedness. Objective Data Objective Data Vital Signs: Vital Signs Temp Pulse Resp BP Pulse Ox 97.2 F L 86 16 113/64 98 01/26/22 09:44 01/26/22 09:45 01/26/22 09:44 01/26/22 09:44 01/26/22 09:45 Oxygen Delivery Method Room Air Weight: 248 lb 7.375 oz Body Mass Index (BMI) 40.1 Intake & Output: Intake and Output for Last 24 Hours 01/24/22 01/25/22 01/26/22 23:59 23:59 23:59 Intake Total 6370.96 / 6370.96 1135.6 / 1135.6 Output Total 1999 Balance 4370.96 / 4370.96 1135.6 / 1135.6 Lab / Micro Data Result Diagrams: 01/23/22 07:45 Micro: Microbiology 01/23/22 07:55 Nasal Secretion SARS-CoV-2 Antigen (Rapid) - Final ROS Constitutional Constitutional: Reports systems reviewed and no addt'l complaints, except as documented Cardiovascular Cardiovascular: Reports systems reviewed and no addt'l complaints, except as documented Respiratory/Chest Respiratory/Chest: Reports systems reviewed and no addt'l complaints, except as documented Gastrointestinal Gastrointestinal: Reports systems reviewed and no addt'l complaints, except as documented Physical Exam Const alert, oriented x3 and no apparent distress HEENT Head and Scalp: atraumatic Resp normal respiratory effort GI soft to palpation and non-tender Bimanual Exam - Vag & Uterus: uterus non-tender Uterus Palpation: uterus fundus firm (below Umbilicus) Assessment & Plan (1) Vaginal delivery: COMMENT: JV boy juice 41 IOL postdates vacuum PLAN: /s/p PPD # 1 1. routine post delivery care 2. breast feeding- support given 3. rh positive 4. rubella immune
== END 2022-01-26 15:15 | disposition home or self-care (01) | DRG 806 ==
PROVIDERS: Admitting Provider Obstetrics & Gynecology; PCP Nurse Practitioner; Referring Provider Obstetrics & Gynecology; Visit Provider Obstetrics & Gynecology
DX: O48.0 Post-term pregnancy (principal); Z37.0 Single live birth; O72.0 Third-stage hemorrhage; E88.81 Metabolic syndrome and other insulin resistance; E03.9 Hypothyroidism, unspecified; Z86.16 Personal history of COVID-19; O99.284 Endocrine, nutritional and metabolic diseases complicating childbirth; O99.824 Streptococcus B carrier state complicating childbirth; Z3A.41 41 weeks gestation of pregnancy; O70.1 Second degree perineal laceration during delivery; O69.81X0 Labor and delivery complicated by cord around neck, without compression, not applicable or unspecified; Z79.82 Long term (current) use of aspirin; Z79.890 Hormone replacement therapy; O26.893 Other specified pregnancy related conditions, third trimester
CPT/HCPCS: 59025; 59050; 85025; 86850; 86900; 86901; 87426; 99218; J7120; A4216; G0378; J2405

== ENCOUNTER → 2022-11-27 | Outpatient (CLI) | payer OTHER, SELFPAY ==
[2022-11-27 15:51] LABS: Thyroid Stim Hormone (TSH) 6.58 uIU/mL (0.358-3.74)
== END | disposition home or self-care (01) ==
PROVIDERS: PCP Nurse Practitioner; Referring Provider Obstetrics & Gynecology; Visit Provider Obstetrics & Gynecology
DX: E03.9 Hypothyroidism, unspecified (principal)
CPT/HCPCS: 36415; 84443

== ENCOUNTER → 2023-06-18 | Outpatient (CLI) | payer OTHER, SELFPAY ==
[2023-06-18 09:17] LABS: Cholesterol 180 mg/dL (200); Glucose 104 mg/dL (74-106); High Density Lipoprotein 52 mg/dL; T4 Free Direct 0.96 ng/dL (0.76-1.46); Thyroid Stim Hormone (TSH) 3.91 uIU/mL (0.358-3.74); Triglycerides 114 mg/dL; Very Low Density Lipoprotein 23 mg/dL (5-40)
[2023-06-18 09:28] LABS: Vitamin D,25 Hydroxy 29.2 ng/mL
== END | disposition home or self-care (01) ==
LOC: PAVLAB 08:25
PROVIDERS: Referring Provider Obstetrics & Gynecology; Visit Provider Obstetrics & Gynecology
DX: Z13.220 Encounter for screening for lipoid disorders (principal); Z13.21 Encounter for screening for nutritional disorder; Z13.1 Encounter for screening for diabetes mellitus
CPT/HCPCS: 36415; 80061; 82306; 82947; 84439; 84443

== ENCOUNTER → 2023-08-19 | Outpatient (CLI) | payer OTHER, SELFPAY ==
[2023-08-19 08:59] LABS: hCG Titer Quant., Serum 98 mIU/mL (1-3)
== END | disposition home or self-care (01) ==
LOC: PAVLAB 08:05
PROVIDERS: Referring Provider Obstetrics & Gynecology; Visit Provider Obstetrics & Gynecology
DX: N91.2 Amenorrhea, unspecified (principal)
CPT/HCPCS: 36415; 84702

== ENCOUNTER → 2023-09-17 | Outpatient (CLI) | payer OTHER, SELFPAY ==
[2023-09-17 12:56] LABS: Absolute Lymphocyte Count 1.86 X10^3/uL (0.83-4.51); Absolute Neutrophil Count 5.8 X10^3/uL (2.0-7.7); Basophil# 0.03 X10^3/uL; Basophil% 0.4 % (0-1); Eosinophil# 0.16 X10^3/uL; Eosinophils% 1.9 % (0-5); Hematocrit 37.4 % (37-47); Hemoglobin 12.1 g/dL (12.0-15.0); Lymphocyte # 1.86 X10^3/ul (0.83-4.51); Lymphocyte % 21.9 % (19-41); Mean Corp Hgb Conc 32.4 g/dL (32-36); Mean Corpuscular Hgb 29.2 pg (27.0-32.0); Mean Corpuscular Volume 90.1 fL (81-99); Mean Platelet Vol. 9.3 fl (6.2-12.0); Monocyte# 0.56 X10^3/uL; Monocyte% 6.6 % (0-10); NRBC Flagged by Analyzer 0 % (0-5); Neutrophil # 5.84 X10^3/uL (2.7-7.7); Neutrophil % 68.8 % (47-70); Platelet Count 360 K/mm3 (150-450); RBC Distribution Width CV 15.9 % (11.6-14.6); RBC Distribution Width SD 52.5 fl (35.1-43.9); Red Blood Count 4.15 M/mm3 (4.2-5.4); White Blood Count 8.5 K/mm3 (4.4-11.0)
[2023-09-17 13:13] LABS: Hemoglobin A1c 5.5 % (3.8-5.6)
[2023-09-17 13:39] LABS: Free T3 2.4 pg/mL (2.18-3.98); T4 Free Direct 0.97 ng/dL (0.76-1.46); Thyroid Stim Hormone (TSH) 2.98 uIU/mL (0.358-3.74)
[2023-09-17 14:10] LABS: HIV - WCH Non-Reactive (Nonreactive); Hepatitis B Surface Antigen Non-Reactive (Nonreactive); Hepatitis C Antibody Non-Reactive (Nonreactive); Rubella IgG Reactive (Nonreactive); Syphilis Antibodies Non-reactive
[2023-09-22 18:07] LABS: Chlamydia By Nucleic Acid AMP Negative (Negative); Gonococcus By Nucleic Acid AMP Negative (Negative)
== END | disposition home or self-care (01) ==
PROVIDERS: Referring Provider Registered Nurse; Visit Provider Registered Nurse
DX: O24.319 Unspecified pre-existing diabetes mellitus in pregnancy, unspecified trimester (principal); O99.280 Endocrine, nutritional and metabolic diseases complicating pregnancy, unspecified trimester; E03.9 Hypothyroidism, unspecified; Z3A.00 Weeks of gestation of pregnancy not specified
CPT/HCPCS: 36415; 83036; 84439; 84443; 84481; 85025; 86703; 86762; 86780; 86803; 86850; 86900; 86901; 87086; 87088; 87340; 87491; 87591

== ENCOUNTER → 2023-12-11 | Outpatient (CLI) | payer OTHER, SELFPAY ==
[2023-12-11 10:51] LABS: T4 Free Direct 0.79 ng/dL (0.76-1.46); Thyroid Stim Hormone (TSH) 2.23 uIU/mL (0.358-3.74)
--- OUTSIDE RECORDS SUMMARY | 2023-12-11 11:20 | XMS RPT_ITS | CCD ---
Author Name Unknown Address [address] [place] [address] Organization [facility] Care Team Providers Care Membership Secretary Name Role Phone NO PRIMARY CARE, Primary Care Unavailable VITALY DURAN Referring Unavailab GERARDO Cerda Attending Unavailable Encounters Encounter Date Encounter Type Care Provider Facility Start: 12-08-2023 End: 12-08-2023 ambulatory NO PRIMARY CARE [facility] Payers Date Payer Category Payer Unknown [id number] Private Health Insurance [id number] Summary Purpose Family History No Family History Records Found Advance Directives No Advanced Directives Records Found Additional Source Comments INFORMATION SOURCE (unrecogn ized section and content) FOR RECORDS PERTAINING TO PATIENTS WHO ARE OR HAVE BEEN ENROLLED IN A CHEMICAL DEPENDENCY/SUBSTANCEABUSE PROGRAM, SOME INFORMATION MAY BE OMITTED. This clinical summary was aggregated from multiple sources. Caution should be exercised in using it in the provision of clinical care. This summary normalizes information from multiple sources, and as a consequence, information in this document may materially change the coding, format and clinical context of patient data. In addition, data may be omitted in some cases. CLINICAL DECISIONS SHOULD BE BASED ON THE PRIMARY CLINICAL RECORDS. [employer] [facility]. provides no warranty or guarantee of the accuracy or completeness of information in this document.
== END | disposition home or self-care (01) ==
LOC: PAVLAB 10:02
PROVIDERS: Referring Provider Obstetrics & Gynecology; Visit Provider Obstetrics & Gynecology
DX: E03.9 Hypothyroidism, unspecified (principal); Z13.29 Encounter for screening for other suspected endocrine disorder
CPT/HCPCS: 36415; 84439; 84443

== ENCOUNTER → 2024-01-29 | Outpatient (CLI) | payer OTHER, SELFPAY ==
[2024-01-29 10:11] LABS: Absolute Lymphocyte Count 1.52 X10^3/uL (0.83-4.51); Basophil# 0.03 X10^3/uL; Basophil% 0.3 % (0-1); Eosinophil# 0.13 X10^3/uL; Eosinophils% 1.4 % (0-5); Hematocrit 33.6 % (37-47); Hemoglobin 10.8 g/dL (12.0-15.0); Lymphocyte # 1.52 X10^3/ul (0.83-4.51); Lymphocyte % 16.6 % (19-41); Mean Corp Hgb Conc 32.1 g/dL (32-36); Mean Corpuscular Volume 90.3 fL (81-99); Mean Platelet Vol. 9.5 fl (6.2-12.0); Monocyte# 0.44 X10^3/uL; Monocyte% 4.8 % (0-10); NRBC Flagged by Analyzer 0 % (0-5); Neutrophil # 6.98 X10^3/uL (2.7-7.7); Neutrophil % 76.2 % (47-70); Platelet Count 278 K/mm3 (150-450); RBC Distribution Width CV 15.4 % (11.6-14.6); RBC Distribution Width SD 50.6 fl (35.1-43.9); Red Blood Count 3.72 M/mm3 (4.2-5.4); White Blood Count 9.2 K/mm3 (4.4-11.0)
[2024-01-29 10:22] LABS: Glucose Challenge Gest 1H 50g 151 mg/dL (70-140)
[2024-01-29 10:55] LABS: HIV - WCH Non-Reactive (Nonreactive); Syphilis Antibodies Non-reactive
== END | disposition home or self-care (01) ==
PROVIDERS: Referring Provider Nurse Practitioner Women's Health; Visit Provider Nurse Practitioner Women's Health
DX: Z34.90 Encounter for supervision of normal pregnancy, unspecified, unspecified trimester (principal)
CPT/HCPCS: 36415; 82950; 85025; 86703; 86780

== ENCOUNTER → 2024-02-13 | Outpatient (CLI) | payer OTHER, SELFPAY ==
[2024-02-13 11:05] LABS: Glucose GTT-Gestation. Fasting 93 mg/dL (<105)
[2024-02-13 11:43] LABS: Glucose GTT-Gestational 1 Hr 163 mg/dL (<190)
[2024-02-13 12:50] LABS: Glucose GTT-Gestational 2 Hr 133 mg/dL (<165)
[2024-02-13 13:40] LABS: Glucose GTT-Gestational 3 Hr 113 L (<145)
== END | disposition home or self-care (01) ==
LOC: LAB 09:48
PROVIDERS: Referring Provider Nurse Practitioner Women's Health; Visit Provider Nurse Practitioner Women's Health
DX: O99.810 Abnormal glucose complicating pregnancy (principal); Z3A.00 Weeks of gestation of pregnancy not specified
CPT/HCPCS: 36415; 82951; 82952

== ENCOUNTER → 2024-04-01 | Outpatient (CLI) | payer OTHER, SELFPAY | END | disposition home or self-care (01) | LOC: LABSPEC 10:38 | PROVIDERS: Referring Provider Advanced Practice Midwife; Visit Provider Advanced Practice Midwife | DX: O26.849 Uterine size-date discrepancy, unspecified trimester (principal); Z3A.00 Weeks of gestation of pregnancy not specified | CPT/HCPCS: 87081; 87186 ==

== ENCOUNTER → 2024-04-02 | Outpatient (CLI) | payer OTHER, SELFPAY ==
--- NOTE | 2024-04-02 12:19 | US_ITS ---
STUDY: SECOND AND THIRD TRIMESTER OBSTETRICAL ULTRASOUND - LIMITED REASON FOR EXAM: Female, 33 years old uterine size greater than dates LMP: PRIOR ULTRASOUND: None. TECHNIQUE: Transabdominal TECHNICAL QUALITY: Adequate. FINDINGS: There is a single intrauterine fetus. The fetus is in a cephalic presentation. There is demonstrated cardiac activity with a heart rate of 137 bpm. There is a normal amniotic fluid volume. The largest amniotic fluid pocket measures 9.2 cm. The amniotic fluid index (DEBRA) is 17.9 cm. Echogenic debris is seen within the amniotic fluid suggestive of possible meconium. The placenta is posterior in location and is not low lying. There are Grade 2 placental changes. The cervix was not measured due to head position. BIOMETRY: BPD: 9.5 cm: 38 weeks, 6 days HC: 34.7 cm: 40 weeks, 1 days AC: 35.4 cm: 39 weeks, 2 days FL: 7.4 cm: 37 weeks, 4 days Age by LMP: 37 weeks, 0 days. CATHY by LMP: April 23, 2024. age by current US: 39 weeks, 1 days. CATHY by current US: April 08, 2024. Estimated weight: 3651 grams, +/- 548 grams, 94 percentile. US/OB Limited With Biometrics IMPRESSION: Single live uterine gestation with a mean gestational age of 39 weeks and 1 day. Electronically Signed: Jaylon Morrell MD at 13:57 EDT ,
[2024-04-02 13:39] LABS: Absolute Lymphocyte Count 1.72 X10^3/uL (0.83-4.51); Basophil# 0.02 X10^3/uL; Basophil% 0.2 % (0-1); Eosinophil# 0.12 X10^3/uL; Eosinophils% 1.1 % (0-5); Hematocrit 35.4 % (37-47); Hemoglobin 11.6 g/dL (12.0-15.0); Lymphocyte # 1.72 X10^3/ul (0.83-4.51); Lymphocyte % 16.3 % (19-41); Mean Corp Hgb Conc 32.8 g/dL (32-36); Mean Corpuscular Hgb 29.7 pg (27.0-32.0); Mean Corpuscular Volume 90.5 fL (81-99); Monocyte# 0.57 X10^3/uL; Monocyte% 5.4 % (0-10); NRBC Flagged by Analyzer 0 % (0-5); Neutrophil # 8.03 X10^3/uL (2.7-7.7); Neutrophil % 76.2 % (47-70); Platelet Count 238 K/mm3 (150-450); RBC Distribution Width CV 16.4 % (11.6-14.6); RBC Distribution Width SD 54.3 fl (35.1-43.9); Red Blood Count 3.91 M/mm3 (4.2-5.4); White Blood Count 10.5 K/mm3 (4.4-11.0)
[2024-04-02 13:58] LABS: Free T3 2.4 pg/mL (2.18-3.98); T4 Free Direct 0.83 ng/dL (0.76-1.46)
== END | disposition home or self-care (01) ==
PROVIDERS: Obstetrics & Gynecology; Referring Provider Advanced Practice Midwife; Visit Provider Advanced Practice Midwife
DX: O26.849 Uterine size-date discrepancy, unspecified trimester (principal); Z3A.00 Weeks of gestation of pregnancy not specified; O09.93 Supervision of high risk pregnancy, unspecified, third trimester; E03.9 Hypothyroidism, unspecified
CPT/HCPCS: 36415; 76816; 84439; 84443; 84481; 85025

== ENCOUNTER → 2024-04-08 | Outpatient (CLI) | payer OTHER, SELFPAY ==
[2024-04-08 10:54] LABS: Glucose Challenge Gest 1H 50g 175 mg/dL (70-140)
== END | disposition home or self-care (01) ==
LOC: PAVLAB 09:26
PROVIDERS: Referring Provider Obstetrics & Gynecology; Visit Provider Obstetrics & Gynecology
DX: Z13.1 Encounter for screening for diabetes mellitus (principal)
CPT/HCPCS: 36415; 82950

== ENCOUNTER 2024-04-13 07:30 | Inpatient (IN) | payer OTHER, SELFPAY ==
[2024-04-13] VITALS (47 sets, daily range): BP systolic 103–141; BP diastolic 55–73; PULSE 61–95; RESP 16; TEMP 36.3–37.2; O2SAT 94–100; BMI 41.3
--- NOTE | 2024-04-13 08:03 | HP.PCM.OB_ITS ---
HPI - General General Date of Admission: 04/13/24 HPI Narrative KOSTA YEN, is a 33 y/o who presents to L&D for IOL. She was recently diagnosed with poorly controlled diabetes and LGA baby weighing approximately 8- 9 pounds. She has a history of an 8 lb 11oz vaginal delivery (vacuum extraction) in 2020. She was oferred IOL or section and chose induction of labor. The risks, benefits, and alternatives were disucssed with her. Maternal Data Information CATHY Calculator Estimated Delivery Date Method Current WG Current Estimate 04/23/24 LMP (Certain) 38w 4d PFSH PFS Medical History Rash and other nonspecific skin eruption examination following vaginal delivery Vaginal delivery Abnormal glucose affecting Lab test positive for detection of COVID-19 virus Influenza vaccination declined Hypothyroid Insulin resistance Hypothyroidism precacerous mole removed from back IBS (irritable bowel syndrome) Home Medications ?Medication ?Instructions ?Recorded ?Last Taken ?Type -iron 27 mg-FA 800 mcg-om3 1 cap PO DAILY #30 caps 08/20/23 Unknown Rx 250 mg-dha 200 mg-epa-fish capsule (Ultra Plus DHA) sertraline 50 mg tablet (Zoloft) 50 mg PO DAILY anxiety 90 days #90 12/23/23 04/12/24 21:00 Rx tabs Allergy/AdvReac Type Severity Reaction Status Date / Time Penicillins Allergy Intermediate Hives Verified 04/13/24 07:27 Family History Other Colon cancer Diabetes Heart disease Surgical History [place] teeth extracted Social History adopted: No household members: spouse and children number of children: 1 current occupational status: employed current occupation: [place] pets and animals: No history of recent travel: No sexually active: Yes Smoking Status: Never smoker alcohol intake: never substance use type: does not use well-balanced diet: rarely or never caffeine: Yes Type: carbonated beverages Number of servings: 1 and coffee Number of servings: 1 eating out: 1-3 times/week during the past year weight has: increased > 10 lbs what type of physical activity do you participate in: none olya/yazidi: Yazidism seatbelt use: always do you feel safe at home: Yes additional social history: [employer] Patient works at [employer] History 2 Elective abortions Hx Para 1 Spontaneous abortions Hx # Term Pregnancies Ectopic pregnancies Hx # Pregnancies Multiple births # of living children 1 Past Pregnancies Del. Date Name GA/Weeks Outcome Route Bth Weight Infant Gen [facility]25/22 Lewis 41 live - full term vacuum 8lbs 11oz Male [facility] Gerson Abebe David Visit Details Expected Delivery Route/Plan Labor Preferences- CB/BF classes: no labor support person: David labor intervention preferences: [] pain management options preferred: epidural cut cord/dad catch: cord : pump PP control planned: discussed, vasectomy discussed possible routes of delivery and associated risks: [] special requests: [] Plans Covid status: [] Flu vaccine: declined Tdap vaccine: given 02/03/24 Rhogam: NA LARC form signed: yes Problem list reviewed and updated with the most current plan of care details and appropriate orders placed. Relevant counseling for the gestational age provided. Continue routine care and follow up unless otherwise noted in visit notes/problem list details OB Flowsheet Initial Weight: Not Recorded Date -?-?-?-?-?-?-?-?-?-?-?-?- EGA Weight BP Urine Prot -?-?-?-?-?-?-?-?-?-?-?-?- Glucose FHR FuHt Pres Dilation -?-?-?-?-?-?-?-?-?-?-?-?- Effaced St Visit Note 09/17/23 -?-?-?-?-?-?-?-?-?-?-?-?- 8w 5d 229 lb 5 oz 126/79 -?-?-?-?-?-?-?-?-?-?-?-?- 168 -?-?-?-?-?-?-?-?-?-?-?-?- LC- CRL con with LMP. declines nipt. to obtain hbga1c, and thyroid studies with nob labs. conceived with clomid. 10/13/23 -?-?-?-?-?-?-?-?-?-?-?-?- 12w 3d 232 lb 8 oz 124/75 Nega tive -?-?-?-?-?-?-?-?-?-?-?-?- Negative 154 -?-?-?-?-?-?-?-?-?--?-?-?- JV- having some early round ligament pain. No lof, vaginal bleeding or uterine cramping. 11/13/23 -?-?-?-?-?-?-?-?-?-?-?-?- 16w 6d 240 lb 2 oz 125/75 Nega tive -?-?-?-?-?-?-?-?-?-?-?-?- Negative 140 -?-?-?-?-?-?-?-?-?-?-?-?- kw-no vb/regino g. possible flutters. Dec 04 US! round ligament pain today. FMLA papers given back to pt today. 12/11/23 -?-?-?-?-?-?-?-?-?-?-?-?- 20w 6d 242 lb 92/65 Negative -?-?-?-?-?-?-?-?-?-?-?-?- Negative 145 22 -?-?-?-?-?-?-?-?-?-?-?-?- SM- no vb lof go od fm check thyroid labs today 01/08/24 -?-?-?-?-?-?-?-?-?-?-?-?- 24w 6d 244 lb 4 oz 126/70 Nega tive -?-?-?-?-?-?-?-?-?-?-?-?- Negative 141 25 -?-?-?-?-?-?-?-?-?-?-?-?- MH-NO VB, LOF. g ood FM. Denies concerns. Larc. 02/03/24 -?-?-?-?-?-?-?-?-?-?-?-?- 28w 4d 247 lb 8 oz 98/64 Nega tive -?-?-?-?-?-?-?-?-?-?-?-?- Negative 143 29 -?-?-?-?-?-?-?-?-?-?-?-?- MH-No VB, LOF. G ood FM. Has 3 hr GTT scheduled. Tdap. 02/19/24 -?-?-?-?-?-?-?-?-?-?-?-?- 30w 6d 251 lb 8 oz 124/80 Nega tive -?-?-?-?-?-?-?-?-?-?-?-?- Negative 137 31 -?-?-?-?--?-?-?-?-?-?-?-?- MH-No VB, LOF. G ood FM. Passed 3 hr GTT. Denies concerns 03/04/24 -?-?-?-?-?-?-?-?-?-?-?-?- 32w 6d 255 lb 120/74 Negative -?-?-?-?-?-?-?-?--?-?-?-?- Negative 125 34 -?-?-?-?-?-?-?-?-?-?-?-?- KW- No vb/lof/ct x. good fm. having vaginal itching and change in discharge. yeast on exam 03/18/24 -?-?-?-?-?-?-?-?-?-?-?-?- 34w 6d 254 lb 109/73 Negative -?-?-?-?-?-?-?-?-?-?-?-?- Negative 150 35 -?-?-?-?-?-?-?-?-?-?-?-?- SM- no vb lof go od fm no regular ctx patient requesitng possible 40 eweks IOL due to discomfort, reivewed that this would be elective and may be possible but reliant on cervical exam and availibility on l and d, provider dependent 04/01/24 -?-?-?-?-?-?-?-?-?-?-?-?- 36w 6d 260 lb 8 oz 122/77 Nega tive -?-?-?-?-?-?-?-?-?-?-?-?- Negative 150 39 Cephalic 2 .5 -?-?-?-?-?-?-?-?-?-?-?-?- 60 -2 KW- no vb/ lof/ctx. good fm. growth US ordered. GBS today. 04/08/24 -?-?-?-?-?-?-?-?-?-?-?-?- 37w 6d 259 lb 117/75 Negative -?-?-?-?-?-?-?-?-?-?-?-?- Negative 140 39 Cephalic 3 -?-?-?-?-?-?-?-?-?-?-?-?- 50 -2 SM- discus sed IOL vs exp management, no vb lof good fm irregular ctx repeating GCT today ROS Constitutional Constitutional: Denies change in weight, fatigue, fever(s), headache(s), poor appetite or weakness Eyes Eyes: Denies blurry vision, change in vision, seeing flashes or spots in vision ENT HEENT: Denies dizziness, headache(s), loss taste/smell or sore throat Cardiovascular Cardiovascular: Denies chest pain, dizziness, dyspnea, irregular heart rhythm, leg edema, palpitations, rapid heart rate or vomiting Respiratory/Chest Respiratory/Chest: Denies chest tightness, cough, dyspnea or breast pain Gastrointestinal Gastrointestinal: Denies abdominal pain, anorexia, constipation, cramping, diarrhea, hemorrhoids, vomiting or weight changes Genitourinary Genitourinary: Denies dysuria, flank pain, genital lesions, genital pain, urinary frequency or urinary urgency Musculoskeletal Musculoskeletal: Denies back pain, difficulty walking, joint pain, limited range of motion, muscle cramps or numbness Integumentary Integumentary: Denies lesions or unusual bruising Neurologic Neurologic: Denies abnormal movements, abnormal speech, dizziness, numbness, seizure-like activity or syncope Psychiatric Psychiatric: Denies anxiety, behavioral changes, change in appetite, change in libido, cognitive impairment, confusion, depression, difficulty concentrating, hallucinations or suicidal thoughts Endocrine Endocrinology: Denies excessive sweating, polydipsia or polyuria Hematologic/Lymphatic Hematologic/Lymphatic: Denies easy bleeding, easy bruising or lymphadenopathy Allergic/Immunologic Allergic/Immunologic: Denies itchy eyes, lip swelling, seasonal rhinorrhea, rhinitis, throat swelling, tongue swelling, eczemia, wheezing or asthma Vital Signs Vital Signs Vital Signs: 04/13/24 07:24 04/13/24 07:24 04/13/24 07:24 Temperature Pulse Rate 95 Respiratory Rate 16 Blood Pressure 116/66 BP Systolic 116 BP Diastolic 66 Pulse Ox 04/13/24 07:24 04/13/24 07:24 04/13/24 07:25 Temperature 98.1 F Pulse Rate 92 Respiratory Rate Blood Pressure BP Systolic BP Diastolic Pulse Ox 94 04/13/24 07:25 Temperature Pulse Rate Respiratory Rate Blood Pressure BP Systolic BP Diastolic Pulse Ox 94 Weight Weight: 256 lb Body Mass Index (BMI) 41.3 Physical Exam Const alert, oriented x3, no apparent distress and healthy appearing General Appearance: cooperative; Negative for anxious HEENT normocephalic Face and Sinus: normal facial exam Eyes EOMs intact bilaterally and no scleral icterus General Eye: normal appearance of both eyes Neck full ROM and supple Lymph Lymphatic: no lymphadenopathy noted Chest Chest: abnormal inspection of the chest Resp normal respiratory effort Effort and Inspection: able to speak in complete sentences Cardio regular rate GI soft to palpation and non-tender Inspection: gravid Palpation: soft; Negative for tender Back/Spine no CVA tenderness Extremity normal to inspection, full ROM and no clubbing, cyanosis or edema General Extremity: Negative for calf tenderness or edema Skin Lesions: no lesions Rashes: no rashes Psych mental status grossly normal Labs Labs Labs: Blood Type A POSITIVE Antibody Screen NEGATIVE Hct 35.4 % (37-47) L Hgb 11.6 g/dL (12.0-15.0) L Pap Smear Negative Obstetrics Ultrasound Syphilis Total Ab Non-reactive Rubella IgG Antibody Reactive (Nonreactive) Hep Bs Antigen Non-Reactive (Nonreactive) Hepatitis C Antibody Non-Reactive (Nonreactive) Chlamydia DNA (FAUSTO) Negative (Negative) N.gonorrhoeae DNA (FAUSTO) Negative (Negative) HIV 1&2 Antibody Non-Reactive (Nonreactive) Glucose 1 Hr 50 gm 175 mg/dL (70-140) H Gest Glucose Tolerance MG/DL Assessment & Plan (1) Gestational diabetes: COMMENT: late 3rd trimester diagnosis - poorly controlled (2) Positive GBS test: COMMENT: plan clindamycin based on allergy and sensitivity (3) Uterine size date discrepancy : COMMENT: 94%-repeat 1 hour gct was 174. 39 week IOL scheduled for 04/16 moody score 6. previous 8lb 11 ounce (4) Abnormal glucose affecting : COMMENT: normal 3 hr. (5) Supervision of high-risk : QUALIFIERS: Trimester: third trimester Qualified Code(s): O09.93 - Supervision of high risk , unspecified, third trimester COMMENT: PRR,, CATHY 04/23/24 girl Love Saucedo, David (6) : QUALIFIERS: Weeks of gestation: 37 weeks Qualified Code(s): Z3A.37 - 37 weeks gestation of COMMENT: declined ntd genetic & carrier testing, normal anatomy (7) Hypothyroidism: QUALIFIERS: Hypothyroidism type: unspecified Qualified Code(s): E03.9 - Hypothyroidism, unspecified COMMENT: Pt stopped her levothyroxine, tsh q trimester (8) Anxiety: COMMENT: no meds. Stable PLAN: Plan Patient presents IOL, plan management for with pitocin/AROM. Pain management: plans epidural. GBS positive, has pcn allergy and on the sensitivity testing, erythromycin + clindamycin sensitivity was not performed, will need vacomycin in labor. Management of any complications: see above I have reviewed the PFS and made any clinically relevant updates.
[2024-04-13] MEDS: Lactated Ringers 1,000 ML 50 ML IV (08:40)
[2024-04-13] MEDS: Oxytocin 15 Units/NS 250ml 15 UNITS/250 ML IV.SOLN 2 UNITS IV (09:00)
[2024-04-13] MEDS: Vancomycin HCl 2,000 MG in 0.9% Normal Saline (500mL Bag) 500 ML 250 MG IV (09:01)
[2024-04-13 09:02] LABS: Absolute Lymphocyte Count 1.34 X10^3/uL (0.83-4.51); Basophil# 0.01 X10^3/uL; Basophil% 0.1 % (0-1); Eosinophil# 0.09 X10^3/uL; Eosinophils% 1.1 % (0-5); Hematocrit 34.6 % (37-47); Hemoglobin 11.2 g/dL (12.0-15.0); Lymphocyte # 1.34 X10^3/ul (0.83-4.51); Lymphocyte % 16.9 % (19-41); Mean Corp Hgb Conc 32.4 g/dL (32-36); Mean Corpuscular Hgb 29.5 pg (27.0-32.0); Mean Corpuscular Volume 91.1 fL (81-99); Mean Platelet Vol. 10.1 fl (6.2-12.0); Monocyte# 0.45 X10^3/uL; Monocyte% 5.7 % (0-10); NRBC Flagged by Analyzer 0 % (0-5); Neutrophil # 6.01 X10^3/uL (2.7-7.7); Neutrophil % 75.6 % (47-70); Platelet Count 236 K/mm3 (150-450); RBC Distribution Width CV 16.5 % (11.6-14.6); RBC Distribution Width SD 54.6 fl (35.1-43.9)
[2024-04-13 09:28] LABS: Syphilis Antibodies Non-reactive
[2024-04-13 10:16] LABS: Bedside Glucose 106 mg/dL (74-106)
[2024-04-13 10:16] LABS: Bedside Glucose 98 mg/dL (74-106)
[2024-04-13] MEDS: LACTATED RINGERS 500 ML 999 ML IV (10:47)
[2024-04-13] MEDS: fentaNYL-bupivacaine (epidural) 100 ML BAG EPIDURAL (11:34)
[2024-04-13 14:42] LABS: Bedside Glucose 72 mg/dL (74-106)
[2024-04-13 15:30] LABS: Bedside Glucose 87 mg/dL (74-106)
[2024-04-13 16:22] LABS: Bedside Glucose 77 mg/dL (74-106)
[2024-04-13] MEDS: Oxytocin 15 Units/NS 250ml 15 UNITS/250 ML IV.SOLN 83 UNITS IV (16:27)
--- NOTE | 2024-04-13 16:42 | OP.PCM_ITS ---
Assessment & Plan (1) Gestational diabetes: COMMENT: late 3rd trimester diagnosis - poorly controlled (2) Uterine size date discrepancy : COMMENT: 94%-repeat 1 hour gct was 174. 39 week IOL scheduled for 04/16 moody score 6. previous 8lb 11 ounce (3) Supervision of high-risk : QUALIFIERS: Trimester: third trimester Qualified Code(s): O09.93 - Supervision of high risk , unspecified, third trimester COMMENT: PRR,, CATHY 04/23/24 girl Love Saucedo, David (4) : QUALIFIERS: Weeks of gestation: 37 weeks Qualified Code(s): Z3A.37 - 37 weeks gestation of COMMENT: declined ntd genetic & carrier testing, normal anatomy (5) Hypothyroidism: QUALIFIERS: Hypothyroidism type: unspecified Qualified Code(s): E03.9 - Hypothyroidism, unspecified COMMENT: Pt stopped her levothyroxine, tsh q trimester (6) Anxiety: COMMENT: no meds. Stable (7) Positive GBS test: COMMENT: plan clindamycin based on allergy and sensitivity (8) Abnormal glucose affecting : COMMENT: normal 3 hr. Maternal Data Information CATHY Calculator Estimated Delivery Date Method Current WG Current Estimate 04/23/24 LMP (Certain) 38w 4d Final CATHY: 04/23/24 Final CATHY Source: LMP Gestational age: 38 weeks 4 days Vaginal Delivery Maternal Presentation Maternal Presentation: Medically Indicated Induction Type of Induction: Pitocin and Amniotomy Medical Reason for Induction: Maternal Medical Condition: list: Operative Information Date of Procedure: 04/13/24 Pre-Operative Diagnosis: 33 y/o @ 38 weeks 4 days, poorly controlled gestational diabetic Post-Operative Diagnosis: 33 y/o @ 38 weeks 4 days, poorly controlled gest ational diabetic Surgery / Procedure Performed: Spontaneous Vaginal Delivery Type of Anesthesia: Epidural Drain: Haile to straight drain Estimated Blood Loss: 400cc Time of Delivery: 16:25 Findings Description of Procedure: Patient began pushing and delivered the head in the NADIRA presentation. The head was delivered atraumatically. The anterior and posterior shoulders delivered without complication followed by the rest of the infant and the infant was placed on the maternal abdomen. Delayed cord clamping was employed for approximately 60 seconds. Cord was clamped and cut and gentle traction was applied to the cord and the placenta delivered spontaneously immediately following it was noted to be intact with three-vessel cord. The perineum and vagina were inspected and noted to have a 2nd degree laceration. This was repaired using a 2-0 vicryl EBL was 400 cc. Patient and infant tolerated delivery well. Presentation: Vertex Amniotic Membrane Rupture Type: Spontaneous Amniotic Fluid Description: Clear Placental Delivery Description: Spontaneous Placenta Disposition: [facility] Cord Vessel Description: 3 Vessels Cord Entanglement: None Infant A Gender: Female (1 minute): 8 (5 minute): 9 Delayed Cord Clamping: Yes Post Vaginal Delivery Medications Given After Delivery: IV Pitocin Episiotomy Description: None Laceration: None Complication Complications: None Multi Select Codes Urinary/Genital Urinary/Genital CPT Codes: 81737 Vaginal Delivery [facility]
--- NOTE | 2024-04-13 16:45 | DCINST_ITS ---
Discharge Instructions Diet Discharge Diet: No restrictions Activity Discharge Activity: Return to Normal Activity, May Not Drive (while taking narcotic pain medications.) and May Shower May resume sexual activity in: 4-6 weeks Dressing / Incision Call your doctor if your incision/area has: Continuous Slow Oozing, Sudden Increased Bleeding, Increased Pain/ Swelling, Increased Redness and Foul Smelling Discharge Follow Up Care Please Follow Up With: Joanne Ahn DO When: Call [phone] to make an appointment with your doctor in 6 weeks. If you had elevated blood pressure or 4th degree laceration, you will need to be seen in 2 weeks. Test Results: Test results from this visit will be discussed in further detail at your follow- up appointment, if applicable. Discharge Plan Admission Admit Date/Time: 04/13/24 07:30 Primary Reason for Your Visit: induction of labor Attending Provider: Joanne Ahn Primary Care Provider: Lillie Brito Primary Discharge Orders/Prescriptions Prescriptions: New naproxen 500 mg tablet 500 mg PO BID PRN (Reason: pain) Qty: 20 0RF No Action Ultra Plus DHA 27 mg-800 mcg- 250 mg-200 mg capsule 1 cap PO DAILY Qty: 30 12RF sertraline [Zoloft] 50 mg tablet 50 mg PO DAILY 90 Days Qty: 90 4RF Referrals / Follow Up: Care Physician,No Primary [Primary Care Provider] - Disposition Disposition (needs filled in before D/C Order can be placed): Home, Self Care
[2024-04-13 17:21] LABS: Bedside Glucose 81 mg/dL (74-106)
[2024-04-14] VITALS (9 sets, daily range): BP systolic 111–134; BP diastolic 63–74; PULSE 68–96; RESP 16–18; TEMP 36.3–36.8; O2SAT 95–96
[2024-04-14 06:22] LABS: Bedside Glucose 94 mg/dL (74-106)
--- NOTE | 2024-04-14 07:06 | PCM.PN.OB ---
Subjective Subjective Patient doing well without complaints. Tolerating PO. Ambulating and voiding without difficulty. Feeding well. Denies chest pain, shortness of breath, calf pain/swelling, fevers, chills, lightheadedness. Objective Data Objective Data Vital Signs: Vital Signs Temp Pulse Resp BP Pulse Ox O2 Del Method 97.4 F L 82 16 131/63 H 98 Room Air 04/14/24 04:21 04/14/24 04:21 04/14/24 04:21 04/14/24 04:21 04/13/24 18:43 04/14/24 04:21 Oxygen Delivery Method Room Air Weight: 256 lb Body Mass Index (BMI) 41.3 Intake & Output: Intake and Output for Last 24 Hours 04/12/24 04/13/24 04/14/24 23:59 23:59 23:59 Intake Total 1924.00 / 1924.00 Output Total 1700 / 1700 600 / 600 Balance 224.00 / 224.00 -600 / -600 Lab / Micro Data 04/13/24 08:40 Labs: Laboratory Results - last 24 hr 04/13/24 08:40: WBC 8.0, RBC 3.80 L, Hgb 11.2 L, Hct 34.6 L, MCV 91.1, MCH 29.5, MCHC 32.4, RDW Std Deviation 54.6 H, RDW Coeff of Yoni 16.5 H, Plt Count 236, MPV 10.1, Immature Gran % (Auto) 0.600, Neut % (Auto) 75.6 H, Lymph % (Auto) 16.9 L, [place] % (Auto) 5.7, Eos % (Auto) 1.1, Baso % (Auto) 0.1, Absolute Neuts (auto) 6.0, Absolute Lymphs (auto) 1.34, Nucleated RBC % 0, Syphilis Total Ab Non-reactive, Blood Type A POSITIVE, Antibody Screen NEGATIVE 04/13/24 08:52: POC Glucose 106 04/13/24 09:52: POC Glucose 98 04/13/24 14:12: POC Glucose 72 L 04/13/24 15:04: POC Glucose 87 04/13/24 16:04: POC Glucose 77 04/13/24 16:58: POC Glucose 81 04/14/24 05:59: POC Glucose 94 ROS Constitutional Constitutional: Reports systems reviewed and no addt'l complaints, except as documented; Denies anorexia or headache(s) Cardiovascular Cardiovascular: Reports systems reviewed and no addt'l complaints, except as documented; Denies dizziness, dyspnea, nausea or tachypnea Respiratory/Chest Respiratory/Chest: Reports systems reviewed and no addt'l complaints, except as documented; Denies cough, dyspnea, shortness of breath at rest or tachypnea Gastrointestinal Gastrointestinal: Reports systems reviewed and no addt'l complaints, except as documented; Denies abdominal pain, constipation or nausea Genitourinary Genitourinary: Reports systems reviewed and no addt'l complaints, except as documented; Denies burning urination, difficulty urinating, dysuria, urinary frequency or urinary incontinence Musculoskeletal Musculoskeletal: Reports systems reviewed and no addt'l complaints, except as documented Integumentary Integumentary: Reports systems reviewed and no addt'l complaints, except as documented Neurologic Neurologic: Reports systems reviewed and no addt'l complaints, except as documented; Denies abnormal speech, dizziness or headache(s) Psychiatric Psychiatric: Reports systems reviewed and no addt'l complaints, except as documented Endocrine Endocrinology: Reports systems reviewed and no addt'l complaints, except as documented Hematologic/Lymphatic Hematologic/Lymphatic: Reports systems reviewed and no addt'l complaints, except as documented Physical Exam Const alert, oriented x3 and no apparent distress Neck full ROM Resp normal respiratory effort, normal air movement and no retractions Effort and Inspection: able to speak in complete sentences and symmetric chest movement GI soft to palpation Bladder / Kidney Exam: bladder normal to palpation Uterus Palpation: uterus fundus firm Extremity normal to inspection and full ROM Psych mental status grossly normal, thought process normal and cooperative Assessment & Plan (1) Vaginal delivery: COMMENT: JV girl PLAN: s/p PPD # 1 1. routine post delivery care 2. breast feeding- support given 3. rh positive 4. rubella immune 5. Discharge home (2) Gestational diabetes: COMMENT: late 3rd trimester diagnosis - poorly controlled (3) Uterine size date discrepancy : COMMENT: 94%-repeat 1 hour gct was 174. 39 week IOL scheduled for 04/16 moody score 6. previous 8lb 11 ounce (4) Supervision of high-risk : QUALIFIERS: Trimester: third trimester Qualified Code(s): O09.93 - Supervision of high risk , unspecified, third trimester COMMENT: PRR,, CATHY 04/23/24 girl Love JAK Lewis, David (5) : QUALIFIERS: Weeks of gestation: 37 weeks Qualified Code(s): Z3A.37 - 37 weeks gestation of COMMENT: declined ntd genetic & carrier testing, normal anatomy (6) Hypothyroidism: QUALIFIERS: Hypothyroidism type: unspecified Qualified Code(s): E03.9 - Hypothyroidism, unspecified COMMENT: Pt stopped her levothyroxine, tsh q trimester (7) Anxiety: COMMENT: no meds. Stable (8) Positive GBS test: COMMENT: plan clindamycin based on allergy and sensitivity (9) Abnormal glucose affecting : COMMENT: normal 3 hr. Charges/Coding Multi Select Codes Urinary/Genital Urinary/Genital CPT Codes: No Charge
[2024-04-14] MEDS: Naproxen 500 MG Tablet PO ×2 (08:56→19:33)
[2024-04-15 02:16] VITALS: BP 122/68; PULSE 64; RESP 16; TEMP 36.6
[2024-04-15 02:17] VITALS: BP 122/68; PULSE 64
--- NOTE | 2024-04-15 07:22 | PN.OBGYN_ITS ---
Subjective Subjective Patient doing well without complaints. Tolerating PO. Ambulating and voiding without difficulty. Feeding well. Denies chest pain, shortness of breath, calf pain/swelling, fevers, chills, lightheadedness. Objective Data Objective Data Vital Signs: Vital Signs Temp Pulse Resp BP Pulse Ox O2 Del Method 97.8 F 64 16 122/68 H 95 Room Air 04/15/24 02:16 04/15/24 02:17 04/15/24 02:16 04/15/24 02:17 04/14/24 08:46 04/14/24 14:00 Oxygen Delivery Method Room Air Weight: 256 lb Body Mass Index (BMI) 41.3 Intake & Output: Intake and Output for Last 24 Hours 04/13/24 04/14/24 04/15/24 23:59 23:59 23:59 Intake Total 1924.00 / 1924.00 Output Total 1700 / 1700 600 / 600 Balance 224.00 / 224.00 -600 / -600 Lab / Micro Data 04/13/24 08:40 ROS Constitutional Constitutional: Denies chills, fatigue, fever(s), poor appetite or weakness Eyes Eyes: Denies blurry vision, change in vision, seeing flashes or spots in vision ENT HEENT: Denies dizziness, headache(s), loss taste/smell or sore throat Cardiovascular Cardiovascular: Denies chest pain, dizziness, dyspnea, irregular heart rhythm, palpitations or rapid heart rate Respiratory/Chest Respiratory/Chest: Denies chest tightness, cough, dyspnea or breast pain Gastrointestinal Gastrointestinal: Denies abdominal pain, constipation or vomiting Genitourinary Genitourinary: Denies dysuria or flank pain Musculoskeletal Musculoskeletal: Denies difficulty walking, joint pain, limited range of motion or numbness Neurologic Neurologic: Denies abnormal movements, abnormal speech, dizziness, numbness, seizure-like activity or syncope Psychiatric Psychiatric: Denies anxiety, behavioral changes, change in appetite, confusion, depression or suicidal thoughts Physical Exam Const alert, oriented x3 and no apparent distress General Appearance: cooperative and comfortable Resp normal respiratory effort Cardio regular rate GI normal to inspection, nondistended, normoactive bowel sounds GI Narrative: uterus is firm below umbilicus Palpation: soft Back/Spine no CVA tenderness and thoraco-lumbar ROM normal Extremity normal to inspection, no clubbing, cyanosis or edema, no calf tenderness and no pedal edema Psych mental status grossly normal, thought process normal, cooperative, affect normal, speech normal, activity/motor behavior normal, denies homicidal ideation and denies suicidal ideation Assessment & Plan (1) Vaginal delivery: COMMENT: JV girl (2) Gestational diabetes: COMMENT: late 3rd trimester diagnosis - poorly controlled (3) Uterine size date discrepancy : COMMENT: 94%-repeat 1 hour gct was 174. 39 week IOL scheduled for 04/16 moody score 6. previous 8lb 11 ounce (4) Supervision of high-risk : QUALIFIERS: Trimester: third trimester Qualified Code(s): O09.93 - Supervision of high risk , unspecified, third trimester COMMENT: PRR,, CATHY 04/23/24 girl Love JAK Saucedo, David (5) : QUALIFIERS: Weeks of gestation: 37 weeks Qualified Code(s): Z 3A.37 - 37 weeks gestation of COMMENT: declined ntd genetic & carrier testing, normal anatomy (6) Hypothyroidism: QUALIFIERS: Hypothyroidism type: unspecified Qualified Code(s): E 03.9 - Hypothyroidism, unspecified COMMENT: Pt stopped her levothyroxine, tsh q trimester (7) Anxiety: COMMENT: no meds. Stable (8) Positive GBS test: COMMENT: plan clindamycin based on allergy and sensitivity (9) Abnormal glucose affecting : COMMENT: normal 3 hr. PLAN: Plan s/p PPD # 2 1. routine post delivery care 2. breast feeding- support given 3. rh positive 4. rubella immune 5. dc to home today. follow up in 6 weeks to discuss gdm
[2024-04-15 08:30] VITALS: BP 132/74; PULSE 72; RESP 18; TEMP 35.7
--- NOTE | 2024-04-19 11:19 | NURSING ---
Follow up phone call performed. Pt. denies questions or concerns. Denies headaches, vision changes, increased lochia, or other s+s of complications.
--- NOTE | 2024-04-19 14:40 | CASEMGMT ---
Social Work Assessment Labor and Delivery Unit Patient Address:[address] [place] [address] Phone number: [phone] Date of Referral:04/13/24 Time of Referral:? 2322 Referred By: Dr. Ahn Date of Intervention: ??04/14/24 Time of Intervention:?1400 Reason for Referral:? anxiety Sw completed chart review and acknowledges social work consult due to maternal mental health history. Sw presented to bedside and introduced self to mother of baby (RAMONITA- Erika). Sw explained reason for sw involvement and completed psychosocial assessment. Father of baby was also present for majority of assessment until sw asked him to step out of the room momentarily while MOB completed Hall Depression Scale. History obtained from: medical records, MOB and FOB Household composition: RAMONITA reports that currently residing in the home is herself, FOB, their 2 year old son, Lewis and now baby when ready for discharge. Patient's parent/guardian status:? ?RAMONITA states that she and FOB have been together for 7 years, for 5. While meeting with MOB privately she denies any history of domestic violence or intimate partner violence. Medical History: ?RAMOINTA is 33 year old female who is 2, para 1- now 2 following labor and delivery of . RAMONITA received routine care during with [facility]. RAMONITA presented to hospital for an induction of labor at 38 weeks gestation on 04/13/24. Baby girl, named Love, was born weighing 7lb 14oz with apgars of 8 and 9 at one and five minutes of life, respectfully. RAMONITA states that she is doing a combination of breast/ bottle feeds. MOB states that baby will be followed by Dr. Fitch for pediatrics. Educational Status:?RAMONITA obtained her Bachelors degree and FOB completed high school. No issues or concerns with reading, learning or writing. Financial Status: Both parents are gainfully employed outside of the home. Both parents work for [employer] Supplies:?? Parents have obtained all necessary baby supplies, including: car seat, safe sleep space, clothes, diapers and wipes. Childcare/Caregiver(s):? RAMONITA states that she will be the primary caregiver to baby along with grandma who is retired when both parents are working. Transportation:??No barriers to transportation at this time, both parents have their drivers license and reliable means of transportation. Programs/Agencies Involved: ???Parents are not connected to any community resources that assist them financially. Children Services/Legal Issues:??? No history of children services involvement, no issues or concerns warranting referral to be made at this time. Behavioral Health Issues: ??Mental Health History:??FOB states that he has seasonal depression. FOB states that his symptoms are manageable, and they do not impact his ability to function every day. MOB states that she has been diagnosed with anxiety and talks to her OBGYN about these concerns. MOB completed an Hall Depression Scale and her score was a 5. Much support and education provided. ? Substance Use History:?Parents deny substance use prior to and during . ? Family History:??Parents deny family history of addiction and significant mental health diagnoses. ??? Drug Screens: ??no drug screens observed in chart review. Family/Social Stressors:? Parents deny any concerns, stressors or issues at this time. Support Systems: MOB states that both sets of grandparents are supportive and FOB. Depression/Shaken Baby/Safe Sleeping:? Sw educated MOB and FOB on signs and symptoms of mood and anxiety disorders. Sw encouraged MOB to seek help at any time during this time if she feels as though she is struggling with her mental health. MOB expressed understanding. FOB states that if MOB were to struggle during this time he would be able to recognize that and would know how to help and support her. Sw educated parents on shaken baby prevention and ABCs of safe sleep. Parents express understanding. ASSESSMENT:? MOB and baby admitted following labor and delivery. MOB with mental health history of anxiety. MOB states that she feels fine at this time and if she were to start to struggle during this period that she would talk to her OBGYN. MOB states that FOB is supportive and she also has family she is open to talking to. MOB has obtained all necessary baby supplies and has natural supports in place. MOB was observed to be quiet during completion of psychosocial assessment, but did answer questions when asked. FOB did leave room respectfully and peacefully when asked to do so. Parents were observed to provide positive and loving hands on care to baby. PLAN:? MOB and baby to be discharged when medically ready. ?No other services requested or indicated. Ingris Degroot, DRUG ENFORCEMENT AGENT, LAND CLASSIFIER
== END 2024-04-15 09:30 | disposition home or self-care (01) | DRG 807 ==
PROVIDERS: Obstetrics & Gynecology; Admitting Provider Obstetrics & Gynecology; Referring Provider Obstetrics & Gynecology; Visit Provider Obstetrics & Gynecology
DX: O24.429 Gestational diabetes mellitus in childbirth, unspecified control (principal); Z37.0 Single live birth; O36.63X0 Maternal care for excessive fetal growth, third trimester, not applicable or unspecified; O99.824 Streptococcus B carrier state complicating childbirth; O70.1 Second degree perineal laceration during delivery; Z88.0 Allergy status to penicillin; Z79.899 Other long term (current) drug therapy; Z3A.38 38 weeks gestation of pregnancy
CPT/HCPCS: 59025; 59050; 82962; 85025; 86780; 86850; 86900; 86901; 99221; J7040; J7120; G0378

== ENCOUNTER → 2025-07-21 | Outpatient (CLI) | payer OTHER, SELFPAY ==
[2025-07-27 14:09] LABS: HPV APTIMA, High Risk Negative (Negative)
== END | disposition home or self-care (01) ==
LOC: LABSPEC 12:30
PROVIDERS: Referring Provider Advanced Practice Midwife; Visit Provider Advanced Practice Midwife
DX: Z12.4 Encounter for screening for malignant neoplasm of cervix (principal)
CPT/HCPCS: 87624; 88175; G0145